=== PATIENT | male | born 1980 | race Caucasian/White ===

== ENCOUNTER 2018-08-23 07:41 | Emergency (ER) | payer BC, OTHER ==
[2018-08-23 08:02] VITALS: TEMP 98.2; BMI 34.3
--- NOTE | 2018-08-23 08:26 | PDOC ---
History of Present Illness - General Chief Complaint: Pain, Acute Stated Complaint: CHEST ABDOMINAL PAIN,LIGHTHEADED Time Seen by Provider: 08/23/18 08:21 History Source: Patient Exam Limitations: No Limitations - History of Present Illness Initial Comments: 08/23/18 09:13 Mr. Maxwell is a 38 yo M with IDDM (recent A1c 6.8%, down from 13% 6 months ago) presents to the emergency department with episodic LUQ abdominal pain and left chest wall pain that has been ongoing for 1.5 weeks. Per the patient, he states the LUQ occurs randomly, with radiation to the periumbilical region, that lasts for seconds, and is described as cramping. No aggravating or relieving factors and denies the following: nausea, vomiting, diarrhea, constipation, hematochezia , melena, and dysuria/hematuria. Concurrently, he has had episodic chest pain in the left chest wall without radiation that is described as tightness that lasts for seconds. He endorses having SOB and lightheadedness during these episodes. He states he has been non compliant of using his metformin and uses his insulin consistently. Denies the following: fevers, chills, visual changes, nausea, vomiting, dysuria, hematuria, melena, and leg pain/swelling. Pmhx: Refer to above Shx: None Medications: metformin, insulin Fhx: Maternal CHF, paternal DM Allergies: NKDA Social: Denies tobacco, alcohol, and substance abuse. Past History - Past Medical History Allergies/Adverse Reactions: Allergies Allergy/AdvReac Type Severity Reaction Status Date / Time No Known Allergies Allergy Verified 08/23/18 07:54 Home Medications: Ambulatory Orders Metformin HCl [Riomet] 500 mg PO BID #30 ml 07/31/12 Indomethacin 25 mg PO TID #18 capsule 07/31/15 Phenobarb/Hyoscy/Atropine/Scop [ Tablet] 16.2 mg PO QID PRN #10 tablet 08/23/18 COPD: No Diabetes: Yes (IDDM) - Family Disease History Family Disease History: Diabetes: Father - Immunization History Immunization Up to Date: Yes - Suicide/Smoking/Psychosocial Hx Smoking Status: No Smoking History: Never smoked Have you smoked in the past 12 months: No Number of Cigarettes Smoked Daily: 0 Hx Alcohol Use: No Drug/Substance Use Hx: No Substance Use Type: None Review of Systems - Review of Systems Able to Perform ROS?: Yes Is the patient limited Slovak proficient: No Constitutional: No: Chills, Diaphoresis, Fever, Weakness HEENTM: No: Eye Pain, Recent change in vision, Nose Pain, Throat Pain, Mouth Pain Respiratory: Yes: Shortness of Breath. No: Cough, SOB with Exertion Cardiac (ROS): Yes: Chest Pain, Lightheadedness, Chest Tightness. No: Irregular Heart Rate, Palpitations, Syncope ABD/GI: No: Constipated, Diarrhea, Nausea, Poor Appetite, Poor Fluid Intake, Rectal Bleeding, Vomiting, Tarry Stools : No: Burning, Dysuria, Hematuria Musculoskeletal: No: Back Pain, Joint Pain Integumentary: No: Bruising, Rash Neurological: No: Headache, Numbness, Paresthesia, Tremors, Weakness, Unsteady Gait, Ataxia Psychiatric: No: Anxiety Endocrine: No: Unexplained Weight Gain Hematologic/Lymphatic: No: Anemia *Physical Exam - Vital Signs Last Vital Signs Temp Pulse Resp BP Pulse Ox 98.2 F 90 161 H 141/91 96 08/23/18 07:56 08/23/18 07:56 08/23/18 07:56 08/23/18 07:56 08/23/18 07:56 - Physical Exam General Appearance: Yes: Nourished, Appropriately Dressed. No: Apparent Distress HEENT: positive: EOMI, AUSTEN, Normal Voice Neck: negative: Lymphadenopathy (R), Lymphadenopathy (L) Respiratory/Chest: positive: Lungs Clear, Normal Breath Sounds. negative: Chest Tender, Respiratory Distress, Accessory Muscle Use Cardiovascular: positive: Regular Rhythm, Regular Rate, S1, S2. negative: Systolic Murmur Gastrointestinal/Abdominal: positive: Normal Bowel Sounds, Tender (epigastric region), Flat, Soft. negative: Pulsatile Mass, Rebound, Tenderness Lymphatic: negative: Adenopathy Musculoskeletal: positive: Normal Inspection. negative: CVA Tenderness Extremity: positive: Normal Capillary Refill, Normal Inspection, Normal Range of Motion. negative: Tender Integumentary: positive: Normal Color, Dry, Warm Neurologic: positive: facilities technician II-XII NML intact, Fully Oriented, Alert, Normal Mood/ Affect, Normal Response, Motor Strength 5/5 Heart Score/ECG Review - History History: Moderately suspicious - Electrocardiogram EKG: Normal ED Treatment Course - LABORATORY CBC & Chemistry Diagram: 08/23/18 09:20 08/23/18 09:20 *DC/Admit/Observation/Transfer Diagnosis at time of Disposition: Fatty infiltration of liver Gastritis Qualifiers: Gastritis type: unspecified gastritis Chronicity: unspecified Gastritis bleeding: without bleeding Qualified Code(s): K29.70 - Gastritis, unspecified, without bleeding - Discharge Dispostion Disposition: HOME Decision to Admit order: No - Prescriptions Prescriptions: Phenobarb/Hyoscy/Atropine/Scop [ Tablet] 16.2 mg PO QID PRN #10 tablet PRN Reason: Pain - Referrals Referrals: [facility] [place] [place] [Provider Group] Keith Woods MD [Staff Physician] - - Patient Instructions Additional Instructions: You were seen in the emergency department for the evaluation of your abdominal pain and chest pain. Your EKG did not show acute pathologies. Your chest xray was within normal limits. Your labs did not show an acute infection and your cardiac enzymes were normal. However, your liver enzymes were elevated which prompted us to evaluate your liver and gallbladder with an ultrasound. Ultrasound showed that you have fatty infiltration, but no gallstones. Please follow up with the referred primary medical doctor and binder lockstitch within 24-48 hours after discharge for follow up care. At home care consists of eating a balanced diet, continuing to take your medication as prescribed, and you were prescribed a new medication to be taken when you have pain as directed on the label. Please return to the emergency department if you have worsening of pain or new concerning symptoms such as continued chest pain, new qualities to the chest pain, shortness of breath and chest pain with exertion or at rest, nausea, vomiting, and blood in the stool. Thank you. - Post Discharge Activity
[2018-08-23] MEDS ORDERED: FAMOTIDINE 20 MG/50 ML IVPB 20 MG/50 ML MG IVPB ONE ×2 (09:24→09:46)
[2018-08-23] MEDS ORDERED: SODIUM CHLORIDE 1,000 ML IV STA (09:24)
[2018-08-23] MEDS ORDERED: MAG HYDROX/AL HYDROX/SIMETH 30 ML UNIT-DOSE CUP PO ONE (09:24)
[2018-08-23] MEDS ORDERED: LIDOCAINE VISCOUS 2% ORAL/TOP 20 ML UNIT-DOSE CUP MM ONE (09:24)
[2018-08-23 09:45] LABS: URINE APPEARANCE CLEAR; URINE BILIRUBIN NEGATIVE (<2.0 mg/dL); URINE COLOR YELLOW; URINE GLUCOSE (UA) 3+ (NEGATIVE); URINE KETONE NEGATIVE (NEGATIVE); URINE LEUK ESTERASE NEGATIVE (NEGATIVE); URINE NITRITE NEGATIVE (NEGATIVE); URINE PROTEIN NEGATIVE (NEGATIVE); URINE UROBILINOGEN NEGATIVE mg/dL (0.2-1.0)
[2018-08-23] MEDS ORDERED: LIDOCAINE VISCOUS 2% ORAL/TOP 20 ML UNIT-DOSE CUP ONE (09:45)
[2018-08-23] MEDS ORDERED: MAG HYDROX/AL HYDROX/SIMETH 30 ML UNIT-DOSE CUP ONE (09:46)
[2018-08-23 10:04] LABS: ALBUMIN 4.2 g/dl (3.4-5.0); ALK PHOS 129 U/L (45-117); ANION GAP 11 MMOL/L (8-16); BILIRUBIN,TOTAL 0.7 mg/dL (0.2-1); BLOOD UREA NITROGEN 15 mg/dL (7-18); CALCIUM 9.1 mg/dL (8.5-10.1); CHLORIDE 99 mmol/L (98-107); CO2 27 mmol/L (21-32); CREATININE 0.8 mg/dL (0.55-1.3); GLUCOSE,RANDOM 273 mg/dL (74-106); LIPASE 293 U/L (73-393); POTASSIUM 4.6 mmol/L (3.5-5.1); SGOT/AST 48 U/L (15-37); SGPT/ALT 84 U/L (13-61); SODIUM 137 mmol/L (136-145); TOT PROT 8.2 g/dl (6.4-8.2)
[2018-08-23 10:40] LABS: BASO % 0.6 % (0-2.0); EOS % 2.6 % (0-4.5); HEMATOCRIT 46.8 % (35.4-49); HEMOGLOBIN 16.1 GM/dL (11.7-16.9); LYMPH % 34.1 % (8-40); MCH 30.5 pg (25.7-33.7); MCHC 34.5 g/dl (32.0-35.9); MEAN CELL VOLUME 88.4 fl (80-96); MEAN PLT VOLUME 8.9 fl (7.5-11.1); MONO % 6.5 % (3.8-10.2); NEUT % 56.2 % (42.8-82.8); PLATELET COUNT 252 K/MM3 (134-434); RBC 5.29 M/mm3 (4.00-5.60); RDW 12.8 % (11.9-15.9)
[2018-08-23] MEDS ORDERED: DICYCLOMINE HCL 20 MG TABLET PO ONE (10:56)
--- NOTE | 2018-08-23 11:06 | PDOC ---
Attending Attestation - HPI HPI: 08/23/18 11:07 The patient is a 38 yo M with a significant past history of IDDM who presents to the emergency department with intermittent LUQ abdominal pain and left anterior chest wall pain that has been for 1.5 weeks. The patient reports radiation of pain from the LUQ to the periumbilical region, lasting seconds, and is described as cramping. He denies aggravating or relieving factors. He also reports intermittent chest pain in the left without radiation that is described as tightness that lasts for seconds. He endorses having SOB and lightheadedness during these chest pain episodes. Denies the following: fevers, chills, visual changes, nausea, vomiting, dysuria , hematuria, melena, and leg pain/swelling. Allergies: NKDA Social: Denies tobacco, alcohol, and substance abuse. - Physicial Exam PE: 08/23/18 11:07 ROS: A complete review of 10 out of 10 review of systems is taken and is negative apart from what is previously mentioned below and in the HPI. Vitals: Triage vital signs reviewed General Appearance: No acute distress, well nourished, well developed Head: Atraumatic Eyes: Pupils equal reactive round, extraocular movement intact Neck: Supple; No nuchal rigidity Chest Wall: Nontender Cardiac: Regular rate and rhythm, no murmurs, no rubs, no gallops Lungs: Clear to auscultation bilateral, good air movement bilaterally Abdomen: Soft, nondistended, normal bowel sounds, nontender to palpation Extremities: Full range of motion to all extremities, no cyanosis, clubbing, or edema Skin: Warm and dry, no rashes or lesions, no rash, no petechiae Neuro: AOX3; Cranial Nerves 2-12 grossly intact, Strength intact to all extremities, Sensation intact to all extremities, gait normal Psych: Normal mood, normal affect - Medical Decision Making 08/23/18 11:07 Documentation prepared by Marline John, acting as medical imaging tech for Zaki Nevarez MD EXAM#: TYPE/EXAM: RESULT: [id number] US/ABDOMEN US HISTORY PROVIDED: Right upper quadrant pain. Real time examination of the abdomen demonstrates the following: The gallbladder is normal in size and free of calculi with no evidence of intra or extrahepatic biliary duct dilatation. There is a 5 mm polyp adherent to the gallbladder wall. The liver is enlarged measuring 18.6 cm in craniocaudad dimension. It is hyperechoic in texture consistent with diffuse fatty infiltration. No discrete intrahepatic masses are identified. Hepatopedal flow is documented within the main portal vein. The pancreas is normal in size and texture with no pancreatic masses identified. The spleen is not enlarged. There is no evidence of hydronephrosis or acute renal abnormalities. There is no evidence of AAA. The IVC is patent. IMPRESSION: 1. Gallbladder polyp. 2. Hepatomegaly and diffuse fatty infiltration of the liver. Reported By: John Sahu MD 08/23/18 1131 <Marline John - Last Filed: 08/23/18 11:34> - Resident Resident Name: Rinku Palacios - ED Attending Attestation I have performed the following: I have examined & evaluated the patient, The case was reviewed & discussed with the resident, I agree w/resident's findings & plan, Exceptions are as noted - Medical Decision Making Patient feels much better after Bentyl. Abdominal pain resolved No acute findings on ultrasound Patient advised to follow-up gastroenterology for further evaluation of the symptomatology and a slightly elevated LFTs. Find his, need for follow-up and strict return instructions discussed with patient. <Zaki Nevarez - Last Filed: 08/23/18 15:14>
[2018-08-23] MEDS ORDERED: DICYCLOMINE HCL 10 MG CAPSULE ONE (12:02)
[2018-08-23 12:21] VITALS: BP 138/80; PULSE 82
--- NOTE | 2018-08-23 13:39 | EKG ---
Test Reason : Blood Pressure : / mmHG Vent. Rate : 082 BPM Atrial Rate : 082 BPM P-R Int : 152 ms QRS Dur : 094 ms QT Int : 396 ms P-R-T Axes : 046 038 036 degrees QTc Int : 462 ms NORMAL SINUS RHYTHM NORMAL ECG NO PREVIOUS ECGS AVAILABLE Confirmed by LIAM AGUIRRE MD ([id number]) on 08/23/2018 1:39:29 PM Referred By: Confirmed By:LIAM AGUIRRE MD
== END 2018-08-23 12:21 | disposition home or self-care (01) ==
LOC: JER 07:41
PROC: 3E033GC Introduction of Other Therapeutic Substance into Peripheral Vein, Percutaneous Approach (ICD-10-PCS; principal; 2018-08-23)
PROC: 3E0337Z Introduction of Electrolytic and Water Balance Substance into Peripheral Vein, Percutaneous Approach (ICD-10-PCS; 2018-08-23)
DX: K76.0 Fatty (change of) liver, not elsewhere classified (principal); E11.9 Type 2 diabetes mellitus without complications
CPT/HCPCS: 36415; 71046-TC-FY; 76700-TC; 80053; 81003; 82550; 82553; 83690; 84484; 85025; 93005; 93010; 99283-25; J7030